=== PATIENT | male | born 1930 | race Caucasian/White ===

== ENCOUNTER 2017-03-04 06:19 | Day surgery (SDC) | payer MEDICARE ==
[~2017-03-04 06:19] MED LIST: BUPIVACAINE HCL 0.75% INJ/PF (7.5 MG/1 ML) 10 ML SDV OS PRN; KETOROLAC TROMETHAMINE 0.45% 4 DROP/0.4 ML DROPERETTE OS PRN; LIDOCAINE 4% INJ/PF (40 MG/ML) 5 ML AMPUL OS PRN
[2017-03-04] MEDS: CYCLOPENTOLATE 0.2%/PHENYLEPHRINE 1% OPH SOLN 2 ML OS PRN ×3 (06:45→07:07)
[2017-03-04] MEDS: TETRACAINE HCL 0.5% OPH SOLN 0.6 ML DROPERETTE OS PRN ×2 (06:45→07:07)
[2017-03-04] MEDS: TROPICAMIDE 1% OPH SOLN 3 ML OS PRN ×3 (06:45→07:07)
[2017-03-04] MEDS: BESIFLOXACIN HCL 0.6% OPH SUSP 5 ML BOTTLE OS PRN ×3 (06:46→08:02)
[2017-03-04] MEDS ORDERED: FENTANYL CITRATE INJ/PF 100 MCG/2 ML AMPUL ONE (06:57)
[2017-03-04] MEDS ORDERED: MIDAZOLAM 2 MG/2 ML INJ ONE (06:57)
[2017-03-04] MEDS ORDERED: CHONDR SU A NA/HYALUR INTRAOC KIT (SURGICARE) ONE ×2 (07:07→11:25)
[2017-03-04] MEDS ORDERED: PHENYLEPHRINE/KETOROLAC 1%-0.3% 4 ML VIAL ONE ×2 (07:07→11:25)
--- NOTE | 2017-03-04 08:17 | [facility] OPERATIVE REPORT E ---
[facility] Operative Report NAME: LYNDA CONRAD AGE: 86Y DATE OF SURGERY: 03/04/2017 ROOM: PREOPERATIVE DIAGNOSIS: CATARACT, LEFT EYE. POSTOPERATIVE DIAGNOSIS: CATARACT, LEFT EYE. PROCEDURE PERFORMED: Phacoemulsification with posterior chamber intraocular lens, left eye. SURGEON: KAMRON BLANCAS M.D. ANESTHESIA: Topical with MAC. INDICATIONS FOR SURGERY: Difficulty reading words on TV. Best corrected visual acuity 20/50. PROCEDURE: The patient was brought to the Operating Room and placed on the operative table. Following tetracaine drops, topical anesthesia was administered. This consisted of instrument wipe pledgets soaked in a solution of 4% Xylocaine mixed with 0.75% Marcaine in a 1:2 ratio. A 2 x 1 cm pledget was placed in the superior fornix. A 1 x 1 cm pledget was placed in the inferior fornix. The eye was patched shut for 5 minutes. The patch was removed. The eye was sterilely prepped and draped in the usual manner. Lid speculum was placed in the eye. The pledgets were removed and 4-0 black silk sutures were placed around the superior and the inferior rectus muscles to be used as traction. A conjunctival peritomy was made at the 10 o'clock position. Hemostasis was obtained with bipolar cautery. A posterior limbal groove was created using a crescent knife and dissected anteriorly towards the cornea. A sharp point blade was used to create a paracentesis site at the 2 o'clock position. A 2.4 mm keratome was used to enter the anterior chamber through the groove. Viscoelastic was injected into the anterior chamber. An anterior capsulotomy was performed using Utrata forceps in a capsulorrhexis fashion. Hydrodissection and hydrodelineation were performed. Phacoemulsification was performed in [id number]-[id number] technique. A total of 8.54 seconds phaco time was used. Following this, the I/A unit was used to remove residual cortex. Viscoelastic was injected into the capsular bag. Intraocular lens model SN60WF, 19.0 diopters, serial number [id number] was placed in the capsular bag. The I/A unit was used to remove residual viscoelastic. The wound was seen to be watertight under high and low pressure, and no sutures were placed. The intraocular lens was well centered. The pressure was adjusted in the eye to normal pressure. The 4-0 black silk sutures and lid speculum were removed. The eye was shielded after Besivance drops were placed. The patient tolerated the procedure well and was sent to the Recovery Room in good condition. DICTATING PHYSICIAN: KAMRON BLANCAS M.D. [id number] PHY#: [id number] ID: [id number] JOB#: [id number] ACCT: [id number] cc:KAMRON BLANCAS M.D. >
--- NOTE | 2017-03-04 08:22 | [facility] DISCHARGE SUMMARY E ---
[facility] Discharge Summary NAME: LYNDA CONRAD AGE: 86Y ADMITTED: 03/04/2017 DISCHARGED: 03/04/2017 PREOPERATIVE DIAGNOSIS: CATARACT, LEFT EYE. POSTOPERATIVE DIAGNOSIS: CATARACT, LEFT EYE. HOSPITAL COURSE: Patient is an 86-year-old gentleman who underwent uneventful cataract extraction with intraocular lens implant, left eye, on 03/04/2017. DISPOSITION: He will be discharged to home. Hl was instructed to resume preoperative medications; take Tylenol as needed for discomfort; to keep his eye shielded; to use Besivance, Durezol, and Ilevro at 3:00 p.m. and 8:00 p.m.; and to follow up in my office in 1 day. DICTATING PHYSICIAN: KAMRON BLANCAS M.D. [id number] [id number] PHY#: [id number] ID: [id number] JOB#: [id number] ACCT: [id number] cc:KAMRON BLANCAS M.D. >
== END 2017-03-04 08:57 | disposition home or self-care (01) ==
LOC: SC 06:19
PROVIDERS: ATTEND Ophthalmology
PROC: 08RK3JZ Replacement of Left Lens with Synthetic Substitute, Percutaneous Approach (ICD-10-PCS; principal; 2017-03-04 07:30)
DX: H25.812 Combined forms of age-related cataract, left eye (principal); Z88.2 Allergy status to sulfonamides; I10 Essential (primary) hypertension; Z79.899 Other long term (current) drug therapy
CPT/HCPCS: 66984; V2632; J2250; J3490 ×3; A9270; J3010; C9447; 142

== ENCOUNTER 2017-03-13 11:41 | Day surgery (SDC) | payer MEDICARE ==
[~2017-03-13 11:41] MED LIST changes: -BUPIVACAINE HCL 0.75% INJ/PF (7.5 MG/1 ML) 10 ML SDV OS PRN; +CHONDR SU A NA/HYALUR INTRAOC KIT (SURGICARE) ONE; +EPINEPHRINE INJ/PF 1 MG/1 ML AMPULE ONE; +LIDOCAINE 1% INJ-PF (10 MG/ML) 30 ML SDV ONE; -LIDOCAINE 4% INJ/PF (40 MG/ML) 5 ML AMPUL OS PRN; +MIDAZOLAM 2 MG/2 ML INJ ONE
[2017-03-13] MEDS: TROPICAMIDE 1% OPH SOLN 3 ML OS PRN ×3 (12:02→12:21)
[2017-03-13] MEDS: CYCLOPENTOLATE 0.2%/PHENYLEPHRINE 1% OPH SOLN 2 ML OS PRN ×3 (12:02→12:21)
[2017-03-13] MEDS: BESIFLOXACIN HCL 0.6% OPH SUSP 5 ML BOTTLE OS PRN ×3 (12:03→12:55)
[2017-03-13] MEDS: TETRACAINE HCL 0.5% OPH SOLN 2 ML OS PRN ×3 (12:04→12:34)
--- NOTE | 2017-03-13 20:58 | [facility] OPERATIVE REPORT E ---
[facility] Operative Report NAME: LYNDA CONRAD AGE: 86Y DATE OF SURGERY: 03/13/2017 ROOM: PREOPERATIVE DIAGNOSIS: Retained nuclear fragment of the left eye. POSTOPERATIVE DIAGNOSIS: Retained nuclear fragment of the left eye. OPERATION: Removal of the nuclear fragments/cortex of the left eye. SURGEON: JACE NEELY M.D. ANESTHESIA: Topical. PROCEDURE: After being prepped and draped in a sterile fashion, attention was made to the previously made superior corneal incision. This was open and spread with a [place]. Following this viscoelastic was instilled into the eye to maintain the anterior chamber. A new paracentesis was made using a 1.2 mm keratome. Attention was directed to the cortex that was behind the lens implant. Using BSS on a stick I was able to irrigate and free up the cortical remnant. This was then removed with irrigation aspiration. Careful inspection was made to make sure that there was no other nuclear fragments or cortical remnants. The rest of the viscoelastic was removed with irrigation aspiration. The wounds were hydrated and found to be watertight. Besivance was instilled in the eye and a clear rigid shield was placed over the eye and the patient was brought back to recovery in stable condition. DICTATING PHYSICIAN: JACE NEELY M.D. [id number] PHY#: [id number] 2010 ID: [id number] JOB#: [id number] ACCT: [id number] cc:JACE NEELY M.D. >
--- NOTE | 2017-03-13 21:08 | [facility] DISCHARGE SUMMARY E ---
[facility] Discharge Summary NAME: LYNDA CONRAD AGE: 86Y ADMITTED: 03/13/2017 DISCHARGED: 03/13/2017 HISTORY OF PRESENT ILLNESS: This is an 86-year-old male who underwent retained lens fragment removal. DIAGNOSIS: Retained lens fragment. HOSPITAL COURSE: He underwent surgery because he was having cloudy vision in his left eye and feeling like he was looking through a cloud. DISCHARGE INSTRUCTIONS: 1. He should be on a regular diet. 2. No bending at the waist and no heavy lifting. 3. He should use his Besivance, Ilevro, and Durezol at 3 p.m. and 8 p.m. and sleep with a rigid shield. 4. I will see him for his one-day postoperative tomorrow. DICTATING PHYSICIAN: JACE NEELY M.D. [id number] PHY#: [id number] 2010 ID: [id number] JOB#: [id number] ACCT: [id number] cc:JACE NEELY M.D. >
== END 2017-03-13 13:55 | disposition home or self-care (01) ==
LOC: SC 11:41
PROVIDERS: ATTEND Internal Medicine
PROC: 08DK3ZZ Extraction of Left Lens, Percutaneous Approach (ICD-10-PCS; principal; 2017-03-13 14:00)
DX: H59.022 Cataract (lens) fragments in eye following cataract surgery, left eye (principal); I10 Essential (primary) hypertension; Z79.899 Other long term (current) drug therapy; Z88.2 Allergy status to sulfonamides
CPT/HCPCS: 66840; J2250; J3490 ×2; A9270; J0171; 142

== ENCOUNTER 2019-11-02 06:49 | Day surgery (SDC) | payer MEDICARE ==
[~2019-11-02 06:49] MED LIST changes: -CHONDR SU A NA/HYALUR INTRAOC KIT (SURGICARE) ONE; -EPINEPHRINE INJ/PF 1 MG/1 ML AMPULE ONE; +KETOROLAC TROMETHAMINE 0.45% 4 DROP/0.4 ML DROPERETTE OD PRN; -KETOROLAC TROMETHAMINE 0.45% 4 DROP/0.4 ML DROPERETTE OS PRN; -LIDOCAINE 1% INJ-PF (10 MG/ML) 30 ML SDV ONE
[2019-11-02] MEDS: CYCLOPENTOLATE 0.2%/PHENYLEPHRINE 1% OPH SOLN 2 ML OD PRN ×3 (07:11→07:32)
[2019-11-02] MEDS: TROPICAMIDE 1% OPH SOLN 15 ML OD PRN ×3 (07:11→07:32)
[2019-11-02] MEDS: BESIFLOXACIN HCL 0.6% OPH SUSP 5 ML BOTTLE OD PRN ×4 (07:11→08:17)
[2019-11-02] MEDS: TETRACAINE HCL 0.5% OPH SOLN 4 ML OD PRN ×4 (07:11→07:53)
[2019-11-02] MEDS ORDERED: LIDOCAINE 1% INJ-PF (10 MG/ML) 30 ML SDV ONE (07:12)
[2019-11-02] MEDS: BUPIVACAINE HCL 0.75% INJ/PF (7.5 MG/1 ML) 10 ML SDV OD PRN ×2 (07:53)
[2019-11-02] MEDS: LIDOCAINE 4% INJ/PF (40 MG/ML) 5 ML AMPUL OD PRN ×2 (07:53)
[2019-11-02] MEDS: EPINEPHRINE INJ/PF 1 MG/1 ML AMPULE ONE ×2 (08:04)
[2019-11-02] MEDS: LIDOCAINE 1%/PHENYLEPHRINE 1.5% 1 ML VIAL ONE ×2 (08:04)
[2019-11-02] MEDS: CHONDR SU A NA/HYALUR INTRAOC KIT (SURGICARE) ONE ×2 (08:04)
[2019-11-02] MEDS: DORZOLAMIDE HCL 2%/TIMOLOL MALEAT 0.5% OPH SOLN 10 ML OD PRN ×2 (08:17)
--- NOTE | 2019-11-02 08:28 | Operative Report ---
Operative Report-[facility] Operative Report: DATE OF SURGERY: 11/02/2019 PREOPERATIVE DIAGNOSIS: CATARACT, RIGHT EYE. POSTOPERATIVE DIAGNOSIS: CATARACT, RIGHT EYE. PROCEDURE PERFORMED: PHACOEMULSIFICATION WITH POSTERIOR CHAMBER INTRAOCULAR LENS, RIGHT EYE. Intraocular Lens Model : SN60WF 19.5 Total Phaco Time: 13.3 CDE SURGEON: KAMRON BLANCAS MD ANESTHESIA: TOPICAL WITH MAC. INDICATIONS FOR SURGERY: Difficulty driving at night. PROCEDURE: The patient was brought to the Operating Room and placed on the operative table. Following tetracaine drops, topical anesthesia was administered. This consisted of instrument wipe pledgets soaked in a solution of 4% Xylocaine mixed with 0.75% Marcaine in a 1:2 ratio. A 2 x 1 cm pledget was placed in the superior fornix. A 1 x 1 cm pledget was placed in the inferior fornix. The eye was patched shut for 5 minutes. The patch was removed. The eye was sterilely prepped and draped in the usual manner. Lid speculum was placed in the eye. The pledgets were removed. 4-0 black silk sutures were placed around the superior and the inferior rectus muscles to be used as traction. A conjunctival peritomy was made at the 10 o'clock position. Hemostasis was obtained with bipolar cautery. A posterior limbal groove was created using a crescent knife and dissected anteriorly towards the cornea. A sharp point blade was used to create a paracentesis site at the 2 o'clock position. 0.2 cc non preserved Lidocaine was injected into the anterior chamber. A 2.4 mm keratome was used to enter the anterior chamber through the groove. Viscoelastic was injected into the anterior chamber. An anterior capsulotomy was performed using Utrata forceps in a capsulorrhexis fashion. Hydrodissection and hydrodelineation were performed. Phacoemulsification was performed in uiziqj-tvd-fayevyp technique. Following this, the I/A unit was used to remove residual cortex. Viscoelastic was injected into the capsular bag. The Intraocular lens was placed in the capsular bag. The I/A unit was used to remove residual viscoelastic. The wound was seen to be watertight under high and low pressure, and no sutures were placed. The intraocular lens was well centered. The pressure was adjusted in the eye to normal pressure. The 4-0 black silk sutures and lid speculum were removed. The eye was shielded after Besivance. prednisolone, and Cosopt drops were placed. The patient tolerated the procedure well and was sent to the Recovery Room in good condition.
== END 2019-11-02 08:56 ==
LOC: SC 06:49
PROVIDERS: ATTEND Ophthalmology
DX: H25.811 Combined forms of age-related cataract, right eye (principal); H00.12 Chalazion right lower eyelid; H40.1231 Low-tension glaucoma, bilateral, mild stage; Z96.1 Presence of intraocular lens; I10 Essential (primary) hypertension; E78.00 Pure hypercholesterolemia, unspecified; Z88.2 Allergy status to sulfonamides; Z79.899 Other long term (current) drug therapy; Z85.828 Personal history of other malignant neoplasm of skin
CPT/HCPCS: 66984; J2250; J3490 ×4; A9270; J0171; 142; V2632